=== PATIENT | male | born 1990 | race Caucasian/White ===

== ENCOUNTER 2019-01-30 17:36 | Emergency (ER) | payer SELFPAY ==
[~2019-01-30] VITALS: Ht 172.7 cm; Wt 89.9 kg
[2019-01-30 17:51] VITALS: BP 132/92
--- NOTE | 2019-01-30 17:57 | NUR ---
WOUND CLEANED IN TRIAGE
--- NOTE | 2019-01-30 18:15 | NUR ---
PT AMBULATED TO ER BED 09
--- NOTE | 2019-01-30 18:20 | NUR ---
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 APPROX 3.5CM X 1CM LAC NOTED. MULTIPLE PUNCTURE BOLAÑOS NOTED. NO ACTIVE BLEEDING AT THIS TIME. +PMSC. PT A&OX4, BREATHING EVEN AND UNLABORED. SKIN WARM, PINK, AND DRY. AWAITING EVALUATION.
--- NOTE | 2019-01-30 19:13 | NUR ---
ASSUMED CARE OF PT FROM BEV PARSONS.
--- NOTE | 2019-01-30 19:17 | NUR ---
ANIMAL BITE FORM FILLED OUT. PT AWAITING ORDERS. REPORT TO BEV PEDROZA.
--- NOTE | 2019-01-30 19:18 | NUR ---
ANIMAL BITE FORM FAXED, CONFIRMATION RECEIVED.
[2019-01-30] MEDS ORDERED: IBUPROFEN 600 MG TAB PO ONE (19:30)
[2019-01-30] MEDS ORDERED: BACITRACIN OINT 500 UNITS/GM PKT TP ONE (19:30)
--- NOTE | 2019-01-30 19:30 | NUR ---
PATIENT WOUND IRRIGATED WITH STERILE WATER TO THE RIGHT FOREARM
[2019-01-30] MEDS ORDERED: LIDOCAINE 1% 500 MG/50 ML VIAL INJ SCH (20:10)
[2019-01-30] MEDS ORDERED: LIDOCAINE MPF 1% 5mL VIAL ONE (20:19)
--- NOTE | 2019-01-30 20:41 | NUR ---
Patient discharged with v/s stable. Written and verbal after care instructions given and explained. Patient alert, oriented and verbalized understanding of instructions. Ambulatory with steady gait. All questions addressed prior to discharge. ID band removed. Patient advised to follow up with PMD. Rx of IBUPROFEN, AUGMENTIN, BACITRACIN given. Patient educated on indication of medication including possible reaction and side effects. Opportunity to ask questions provided and answered.
[2019-01-30 20:42] VITALS: BP 129/86
--- NOTE | 2019-01-30 20:50 | NUR ---
Bacitracin applied to patients wounds coverd with non adherent gauze wrapped with roller gauze
== END 2019-01-30 20:42 | disposition home or self-care (01) ==
LOC: MED 17:36
DX: S51.811A Laceration without foreign body of right forearm, initial encounter (principal); W54.0XXA Bitten by dog, initial encounter; Y93.01 Activity, walking, marching and hiking; Y92.410 Unspecified street and highway as the place of occurrence of the external cause; Y99.8 Other external cause status
CPT/HCPCS: 12001; 90471; 90715; 99283; J2001